=== PATIENT | female | born 1950 | race Two or more races ===

== ENCOUNTER 2019-09-08 19:53 | Emergency (ER) | payer OTHER ==
[~2019-09-08] VITALS: Ht 167.6 cm; Wt 74.8 kg
[~2019-09-08 19:53] MED LIST: ASPIR 8181 MG PO; CIPRO500 MG PO; GABAPENTIN800 MG PO; SYNTH PO; TRAM1TAB98 PO
== END 2019-09-09 11:12 | disposition home or self-care (01) ==
LOC: ER 19:53
DX: I87.2 Venous insufficiency (chronic) (peripheral) (principal); I73.89 Other specified peripheral vascular diseases; M79.604 Pain in right leg; R60.0 Localized edema; M25.571 Pain in right ankle and joints of right foot

== ENCOUNTER 2020-07-09 16:43 | Emergency (ER) | payer OTHER ==
[~2020-07-09] VITALS: Ht 167.6 cm; Wt 72.1 kg
[2020-07-09] MEDS ORDERED: CELECOXIB100 MG PO (22:13)
[2020-07-09] MEDS ORDERED: PERCOCET 5-3251 EACH PO (22:13)
== END 2020-07-09 22:30 | disposition home or self-care (01) ==
LOC: ER 16:43
DX: S52.592A Other fractures of lower end of left radius, initial encounter for closed fracture (principal); S33.5XXA Sprain of ligaments of lumbar spine, initial encounter; W11.XXXA Fall on and from ladder, initial encounter; Y93.E9 Activity, other interior property and clothing maintenance; Y92.010 Kitchen of single-family (private) house as the place of occurrence of the external cause; Y99.8 Other external cause status

== ENCOUNTER 2023-09-09 07:06 | Outpatient (CLI) | payer OTHER ==
[~2023-09-09 07:06] MED LIST changes: +CELECOXIB100 MG PO; +PERCOCET 5-3251 EACH PO
== END 2023-09-09 07:07 | disposition home or self-care (01) ==
LOC: NUCLEAR 07:06
PROVIDERS: ATTEND Internal Medicine
DX: I25.10 Atherosclerotic heart disease of native coronary artery without angina pectoris (principal)
CPT/HCPCS: 78452; 93017; A9500; J0153

== ENCOUNTER 2023-11-10 07:45 | Inpatient (IN) | payer OTHER ==
[~2023-11-10] VITALS: Ht 167.6 cm; Wt 56.7 kg
[2023-11-10] MEDS ORDERED: LEVOTHYROXINE25 MCG PO (08:54)
[2023-11-10] MEDS ORDERED: TAMS0.4C PO (08:54)
[2023-11-10] MEDS ORDERED: OMEPRAZOLE-BIC1 EAC1 (08:54)
[2023-11-10] MEDS ORDERED: TOPROL XL25 M1 PO (08:55)
[2023-11-10] MEDS ORDERED: COZAAR25 MG PO (08:55)
[2023-11-10 09:33] LABS: HEMATOCRIT 40.5 % (36.0-45.00); HEMOGLOBIN 13.9 g/dL (12.0-15.00); MEAN CELL VOLUME 93.9 fL (80.00-100.00); MEAN CORPUSCULAR HEMOGLOBIN 32.3 pg (27.00-32.0); MEAN CORPUSCULAR HGB CONC 34.4 g/dl (32.0-36.0); PLATELET COUNT 161 K/uL (150-450); RED BLOOD COUNT 4.32 M/uL (4.00-6.00); RED CELL DISTRIBUTION WIDTH 13.8 % (11.5-14.5)
[2023-11-10 09:50] LABS: INR 1.01; PARTIAL THROMBOPLASTIN TIME 24.7 SECONDS (22.0-34.0); PROTHROMBIN TIME 10.6 SECONDS (9.0-11.5)
[2023-11-10 09:53] LABS: URINE APPEARANCE Clear; URINE BILIRRUBIN Negative (NEGATIVE); URINE BLOOD Negative; URINE COLOR Yellow; URINE GLUCOSE Negative (NEGATIVE); URINE LEUKOCYTE Negative; URINE NITRATE Negative; URINE PROTEIN Negative (NEGATIVE); URINE UROBILINOGEN 0.2 E.U./dl
[2023-11-10 09:58] LABS: URINE EPITHELIAL CELLS 3.7 uL (0.0-38.8); URINE RBC 4.3 uL (0.0-20.8); URINE WBC 13.7 uL (0.0-23.2)
[2023-11-10 10:13] LABS: BILIRUBIN TOTAL 0.77 mg/dL (0.3-1.2); CALCIUM 9.6 mg/dL (8.5-10.1); CREATININE SERUM 0.91 mg/dL (0.55-1.02); GFR 60.77; GLOBULINA 3.4 G/DL (2.4-3.5); POTASSIUM 4.29 mEq/L (3.5-5.1); TOTAL PROTEIN 7.4 gm/dL (6.4-8.2)
[2023-11-10 10:21] LABS: URINE BACTERIA > 9821.5 uL (0.0-1933)
[2023-11-24] MEDS ORDERED: LIDOCAINE HCL/EPINEPHRINE 20 ML VIAL IJ ONE (06:57)
[2023-11-24] MEDS ORDERED: POVIDONE-IODINE 3 EA MED..SWAB TOP ONE (06:57)
[2023-11-24] MEDS ORDERED: BUPIVACAINE HCL/PF 2.5 MG/ML 30ML VIAL InF ONE (06:57)
[2023-11-24] MEDS ORDERED: CEFAZOLIN SODIUM 1,000 MG VIAL ONE (07:00)
[2023-11-24] MEDS ORDERED: TRANEXAMIC ACID 100MG/1ML (1000MG) AMPUL IV ONE ×3 (07:01→08:30)
[2023-11-24] MEDS ORDERED: KETOROLAC TROMETHAMINE 60 MG VIAL IM ONE ×2 (08:24→08:30)
[2023-11-24] MEDS ORDERED: METHYLPREDNISOLONE ACETATE 80 MG/ML VIAL ONE (08:24)
[2023-11-24] MEDS ORDERED: CEFAZOLIN SODIUM 1,000 MG VIAL IV ONE (08:30)
[2023-11-24] MEDS ORDERED: METHYLPREDNISOLONE ACETATE 80 MG/ML VIAL IJ ONE (08:30)
[2023-11-24] MEDS ORDERED: GENTAMICIN SULFATE 40 MG/ML VIAL IV SCH (09:59)
[2023-11-24] MEDS ORDERED: SODIUM CHLORIDE 0.45 % 1,000 ML IV SCH (10:00)
[2023-11-24] MEDS ORDERED: MORPHINE SULFATE 2 MG/ML CARTRIDGE IV PRN (10:00)
[2023-11-24] MEDS ORDERED: ONDANSETRON HCL 2 MG/ML VIAL IV PRN (10:00)
[2023-11-24] MEDS ORDERED: MORPHINE SULFATE 4 MG/ML CARTRIDGE IV PRN (10:00)
[2023-11-24] MEDS ORDERED: CEFAZOLIN SODIUM 1,000 MG VIAL IV SCH (12:00)
[2023-11-24] MEDS ORDERED: RINGERS SOLUTION,LACTATED 1,000 ML IV STA (14:33)
[2023-11-24 14:38] LABS: HEMATOCRIT 35.4 % (36.0-45.00); HEMOGLOBIN 12.3 g/dL (12.0-15.00); RED BLOOD COUNT 3.73 M/uL (4.00-6.00)
[2023-11-25] MEDS ORDERED: LEVOTHYROXINE SODIUM 25 MCG TABLET PO SCH (06:00)
[2023-11-25 06:42] LABS: HEMATOCRIT 35.7 % (36.0-45.00); HEMOGLOBIN 12.3 g/dL (12.0-15.00); MEAN CELL VOLUME 92.5 fL (80.00-100.00); MEAN CORPUSCULAR HEMOGLOBIN 31.9 pg (27.00-32.0); MEAN CORPUSCULAR HGB CONC 34.5 g/dl (32.0-36.0); PLATELET COUNT 150 K/uL (150-450); RED BLOOD COUNT 3.86 M/uL (4.00-6.00); RED CELL DISTRIBUTION WIDTH 13.9 % (11.5-14.5)
[2023-11-25] MEDS ORDERED: OxyCODONE HCL/APAP UD (PERCOCET) PO PRN (08:15)
[2023-11-25] MEDS ORDERED: ACETAMINOPHEN 500 MG GEL..CAP PO PRN (08:30)
[2023-11-25] MEDS ORDERED: BACITRACIN 28.35 GM OINT.TUBE TOP SCH (09:00)
[2023-11-25] MEDS ORDERED: METOPROLOL SUCCINATE 25 MG TAB.SR.24H PO SCH (09:00)
[2023-11-25] MEDS ORDERED: LOSARTAN POTASSIUM 25 MG TABLET PO SCH (09:00)
[2023-11-25] MEDS ORDERED: IRON FUM,PS/FOLIC/BCOMP,C NO.9 1 CAP CAPSULE PO SCH (09:00)
[2023-11-25] MEDS ORDERED: RIVAROXABAN 10 MG TAB PO SCH (09:00)
[2023-11-25] MEDS ORDERED: OxyCODONE HCL ER 10MG TAB (OxyCONTIN) PO SCH (09:00)
[2023-11-25] MEDS ORDERED: SENNA/DOCUSATE SODIUM 1 TAB TABLET PO SCH (09:00)
[2023-11-26] MEDS ORDERED: OXYC1TAB9 PO (06:47)
[2023-11-26] MEDS ORDERED: XARELTO10 MG PO (06:47)
[2023-11-26] MEDS ORDERED: INTEGRA PLUS C1 EACH PO (06:47)
[2023-11-26] MEDS ORDERED: BACTRIM DS TAB1 EACH PO (06:47)
[2023-11-26 07:22] LABS: HEMATOCRIT 33.1 % (36.0-45.00); HEMOGLOBIN 11.4 g/dL (12.0-15.00); MEAN CELL VOLUME 93.3 fL (80.00-100.00); MEAN CORPUSCULAR HEMOGLOBIN 32.1 pg (27.00-32.0); MEAN CORPUSCULAR HGB CONC 34.5 g/dl (32.0-36.0); PLATELET COUNT 139 K/uL (150-450); RED BLOOD COUNT 3.55 M/uL (4.00-6.00); RED CELL DISTRIBUTION WIDTH 13.7 % (11.5-14.5)
[2023-11-26] MEDS ORDERED: MINERAL OIL 30 ML BLIST.PACK PO ONE (09:45)
[2023-11-26] MEDS ORDERED: LACTULOSE 20 G/30 ML BLIST.PACK PO ONE (09:45)
[2023-11-26] MEDS ORDERED: MAGNESIUM HYDROXIDE 30 ML BLIST.PACK PO ONE (09:45)
== END 2023-11-26 20:03 | DRG 470 ==
LOC: O/R 11-24 05:09 → SURG 11-24 07:00 → SURH 11-24 09:57
PROVIDERS: ADMIT Orthopaedic Surgery Sports Medicine; ATTEND Orthopaedic Surgery Sports Medicine
PROC: 0SRD0J9 Replacement of Left Knee Joint with Synthetic Substitute, Cemented, Open Approach (ICD-10-PCS; principal; 2023-11-24 07:00)
DX: M17.12 Unilateral primary osteoarthritis, left knee (principal)

== ENCOUNTER 2024-12-11 09:40 | Emergency (ER) | payer OTHER ==
[~2024-12-11] VITALS: Ht 165.1 cm; Wt 76.2 kg
[~2024-12-11 09:40] MED LIST changes: +BACTRIM DS TAB1 EACH PO; +COZAAR25 MG PO; +INTEGRA PLUS C1 EACH PO; +LEVOTHYROXINE25 MCG PO; +OMEPRAZOLE-BIC1 EAC1; +OXYC1TAB9 PO; +TAMS0.4C PO; +TOPROL XL25 M1 PO; +XARELTO10 MG PO
[2024-12-11] MEDS ORDERED: ADULT LOW DOSE81 M1 PO (09:55)
[2024-12-11] MEDS ORDERED: TOBRAMYCIN/DEXAMETHASONE 20 DR/ML DROPS OP STA (10:53)
== END 2024-12-11 11:15 | disposition home or self-care (01) ==
LOC: ER 09:43
DX: S05.01XA Injury of conjunctiva and corneal abrasion without foreign body, right eye, initial encounter (principal); W44.8XXA Other foreign body entering into or through a natural orifice, initial encounter; Y93.H2 Activity, gardening and landscaping; Y92.89 Other specified places as the place of occurrence of the external cause; E03.8 Other specified hypothyroidism; I10 Essential (primary) hypertension